=== PATIENT | male | born 1970 | race American Indian/Alaskan Native ===

== ENCOUNTER 2020-08-01 04:08 | Emergency (ER) | payer MEDICAID ==
--- NOTE | 2020-08-01 05:10 | XRay Report ---
RIGHT SHOULDER, 3 VIEWS INDICATION / CLINICAL INFORMATION: right shoulder pain. COMPARISON: None available. FINDINGS: Mild degenerative changes are present in the shoulder. No fracture or dislocation. There is some mini mal calcification at the insertion site of the rotator cuff on the greater tuberosity suggesting the presence of calcific tendinitis. IMPRESSION: Findings suggest calcific tendinitis. Please correlate clinically.. Signer Name: Jennifer Melgar MD Signed: 08/01/2020 5:06 AM Workstation Name: [facility]
[2020-08-01] MEDS ORDERED: IBUPROFEN 600 MG TAB PO ONE (05:11)
[2020-08-01] MEDS ORDERED: ACETAMINOPHEN 500 MG TAB PO ONE (05:11)
[2020-08-01] MEDS ORDERED: predniSONE 20 MG TAB PO ONE (05:11)
--- NOTE | 2020-08-01 05:40 | Emergency Department Report ---
ED Extremity Problem HPI - General Chief complaint: Shoulder Injury Stated complaint: RIGHT SHOULDER PAIN Source: patient Mode of arrival: Ambulatory Limitations: No Limitations - History of Present Illness Initial comments: Patient is a 49-year-old -F[place] male with history of hypertension who presents to the ED with complaint of acute onset persistent severe nontraumatic right shoulder pain for the last 1 week, worse in the last 3 days. Patient states that he has not been able to sleep because of worsening right shoulder pain. Patient denies fall, traumatic injury, heavy lifting, chest pain, shortness of breath, abdominal pain, back pain, dizziness, syncope, numbness and tingling or weakness of right arm or right shoulder, neck pain or headache. MD Complaint: extremity pain (right shoulder pain), joint paint (right shoulder pain) -: Sudden, days(s) (3) Location: right, upper extremity (right shoulder pain) History of Same: No -: Yes arthralgia Severity scale (0 -10): 8 Quality: aching, sharp Consistency: constant Improves with: nothing Worsens with: weight bearing, palpation Associated Symptoms: denies other symptoms, arthralgias (right shoulder pain). denies: chest pain, shortness of breath, fever, myalgias - Related Data Previous Rx's Medication Instructions Recorded Last Taken Type Cyclobenzaprine [Flexeril] 10 mg PO Q12H PRN #12 tablet 08/01/20 Unknown Rx Ibuprofen [Motrin] 800 mg PO Q8HR PRN #30 tablet 08/01/20 Unknown Rx predniSONE [Deltasone] 60 mg PO QDAY #15 tab 08/01/20 Unknown Rx Allergies Allergy/AdvReac Type Severity Reaction Status Date / Time No Known Allergies Allergy Unverified 08/01/20 04:29 ED Review of Systems ROS: Stated complaint: RIGHT SHOULDER PAIN Other details as noted in HPI Constitutional: denies: chills, fever Eyes: denies: eye pain, eye discharge, vision change ENT: denies: ear pain, throat pain Respiratory: denies: cough, shortness of breath, wheezing Cardiovascular: denies: chest pain, palpitations Endocrine: no symptoms reported Gastrointestinal: denies: abdominal pain, nausea, diarrhea Genitourinary: denies: urgency, dysuria Musculoskeletal: arthralgia (right shoulder pain), myalgia. denies: back pain, joint swelling Skin: denies: rash, lesions Neurological: denies: headache, weakness, paresthesias Psychiatric: denies: anxiety, depression Hematological/Lymphatic: denies: easy bleeding, easy bruising ED Past Medical Hx - Past Medical History Previous Medical History?: Yes Hx Hypertension: Yes Additional medical history: GOUT - Surgical History Past Surgical History?: Yes Additional Surgical History: Right Carpal Tunnel - Social History Smoking Status: Current Every Day Smoker Substance Use Type: None - Medications Home Medications: Home Medications Medication Instructions Recorded Confirmed Last Taken Type Cyclobenzaprine [Flexeril] 10 mg PO Q12H PRN #12 tablet 08/01/20 Unknown Rx Ibuprofen [Motrin] 800 mg PO Q8HR PRN #30 tablet 08/01/20 Unknown Rx predniSONE [Deltasone] 60 mg PO QDAY #15 tab 08/01/20 Unknown Rx ED Physical Exam - General Limitations: No Limitations General appearance: alert, in no apparent distress - Head Head exam: Present: atraumatic, normocephalic, normal inspection - Eye Eye exam: Present: normal appearance, PERRL, EOMI Pupils: Present: normal accommodation - ENT ENT exam: Present: normal exam, normal orophraynx, mucous membranes moist, TM's normal bilaterally, normal external ear exam - Neck Neck exam: Present: normal inspection, full ROM - Respiratory Respiratory exam: Present: normal lung sounds bilaterally. Absent: respiratory distress, wheezes, rales, stridor, chest wall tenderness, accessory muscle use, decreased breath sounds, prolonged expiratory - Cardiovascular Cardiovascular Exam: Present: regular rate, normal rhythm, normal heart sounds. Absent: systolic murmur, diastolic murmur, rubs, gallop - GI/Abdominal GI/Abdominal exam: Present: soft, normal bowel sounds. Absent: tenderness, guarding, rebound, hyperactive bowel sounds, hypoactive bowel sounds, organomegaly - Extremities Exam Extremities exam: Present: normal inspection, full ROM, tenderness (Palpable right shoulder tenderness), normal capillary refill. Absent: pedal edema, calf tenderness - Back Exam Back exam: Present: normal inspection, full ROM. Absent: tenderness, CVA tenderness (R), CVA tenderness (L), muscle spasm, paraspinal tenderness, vertebral tenderness - Neurological Exam Neurological exam: Present: alert, oriented X3, CN II-XII intact, normal gait, reflexes normal - Psychiatric Psychiatric exam: Present: normal affect, normal mood - Skin Skin exam: Present: warm, dry, intact, normal color. Absent: rash ED Course Vital Signs 08/01/20 04:14 Temperature 98.8 F Pulse Rate 87 Respiratory 16 Rate Blood Pressure 178/113 O2 Sat by Pulse 96 Oximetry ED Medical Decision Making - Radiology Data Radiology results: report reviewed, image reviewed Findings [facility] [address] [place] [address] XRay Report Signed Patient: ROSAURA RODRÍGUEZ MR#: [id number] 2 : 1970 Acct:[id number] Age/Sex: 49 / M ADM Date: 08/01/20 Loc: ED Attending Dr: Ordering Physician: Maude Castro MD Date of Service: 08/01/20 Procedure(s): XR shoulder 2+V RT Accession Number(s): [id number] cc: Maude Castro MD Fluoro Time In Minutes: RIGHT SHOULDER, 3 VIEWS INDICATION / CLINICAL INFORMATION: right shoulder pain. COMPARISON: None available. FINDINGS: Mild degenerative changes are present in the shoulder. No fracture or dislocation. There is some minimal calcification at the insertion site of the rotator cuff on the greater tuberosity suggesting the presence of calcific tendinitis. IMPRESSION: Findings suggest calcific tendinitis. Please correlate clinically.. Signer Name: Jennifer Melgar MD Signed: 08/01/2020 5:06 AM Workstation Name: [id number] Transcribed By: JR Dictated By: Jennifer Melgar MD Electronically Authenticated By: Jennifer Melgar MD Signed Date/Time: 08/01/20 0506 DD/ 0504 TD/TT: - Medical Decision Making This is a 49-year-old -F[place]ish male with history of hypertension who presents to the ED with complaint of acute onset persistent severe nontraumatic right shoulder pain for the last 1 week, worse in the last 3 days. Patient states that he has not been able to sleep because of worsening right shoulder pain. In the ED, patient is alert and oriented x3 and is not in distress. Patient was treated for pain in the ED. the right shoulder x-ray showed findings suggestive of calcific tendinitis. On reevaluation, patient's pain is well controlled medications. Patient was discharged home on pain medications and advised follow-up with his primary care physician in 7 to 10 days for reeva luation or return to the ED immediately if symptoms get worse. - Differential Diagnosis Tendonitis; bursitis; DJD; Muscle strain Critical care attestation.: If time is entered above; I have spent that time in minutes in the direct care of this critically ill patient, excluding procedure time. ED Disposition Clinical Impression: Right shoulder tendinitis, Bursitis of right shoulder Right shoulder pain Qualifiers: Chronicity: acute Qualified Code(s): M25.511 - Pain in right shoulder Disposition: DC- TO HOME OR SELFCARE Is pt being admited?: No Does the pt Need Aspirin: No Condition: Stable Instructions: Shoulder Pain, [id number], Bursitis, [id number], Joint Pain, [id number], Bursitis, Calcific Tendinitis Additional Instructions: Take medication with food, drink plenty of fluids and follow-up with your primary care physician in 7 to 10 days for reevaluation. Return to the ED immediately if symptoms get worse. Prescriptions: predniSONE [Deltasone] 60 mg PO QDAY #15 tab Cyclobenzaprine [Flexeril] 10 mg PO Q12H PRN #12 tablet PRN Reason: Muscle Spasm Ibuprofen [Motrin] 800 mg PO Q8HR PRN #30 tablet PRN Reason: Pain , Severe (7-10) Referrals: MADHAV GARCIA MD [Primary Care Provider] - 3-5 Days Time of Disposition: 05:42 Print Language: PANAMANIAN
[2020-08-01 06:53] VITALS: BP 161/92
== END 2020-08-01 06:00 | disposition home or self-care (01) ==
LOC: ED 04:08
DX: M75.51 Bursitis of right shoulder (principal); M77.8 Other enthesopathies, not elsewhere classified; M25.511 Pain in right shoulder; I10 Essential (primary) hypertension; M10.9 Gout, unspecified; F17.200 Nicotine dependence, unspecified, uncomplicated; Z79.899 Other long term (current) drug therapy; Z98.890 Other specified postprocedural states
CPT/HCPCS: 73030; 99283; J7512